=== PATIENT | female | born 2000 | race Caucasian/White ===

== ENCOUNTER 2024-06-18 07:01 | Emergency (ER) | payer OTHER ==
[~2024-06-18] VITALS: Ht 175.3 cm; Wt 111.1 kg
[2024-06-18] MEDS ORDERED: Tetracaine HCl/Pf 0.5% Opth Soln 4 ml BOTHEYES ONE (07:45)
[2024-06-18] MEDS ORDERED: Fluorescein Sod 1MG Opth Strips LEFTEYE ONE (07:45)
[2024-06-18] MEDS ORDERED: ADVANCED EYE RE LEFTEYE ×2 (08:08→09:07)
== END 2024-06-18 09:16 | disposition home or self-care (01) ==
LOC: ER 07:01
DX: B30.9 Viral conjunctivitis, unspecified (principal)
CPT/HCPCS: 99282; A9270